=== PATIENT | female | born 1985 | race Caucasian/White ===

== ENCOUNTER 2016-12-25 14:27 | Observation (INO) ==
[2016-12-25] MEDS ORDERED: PROMETHAZINE 25 MG/1 ML VIAL ONE (14:40)
[2016-12-25] MEDS ORDERED: PROMETHAZINE 25 MG/1 ML VIAL IM PRN (14:49)
[2016-12-25] MEDS ORDERED: ACETAMINOPHEN 325 MG TABLET PO PRN (14:49)
[2016-12-25 15:12] LABS: Basophils % 0.5 % (0.0-0.8); Eosinophils # 0.1 10*3/uL (0.0-0.87); Eosinophils % 0.9 % (0.00-10.9); Hematocrit 36.9 VOL% (35.7-47.0); Hemoglobin 13.2 GM/DL (12.0-16.0); Immature Granulocytes % 0.4 %; Immature Granulocytes Absolute 0.03 #; Lymphocytes # 1.8 10*3/uL (1.4-4.0); Lymphocytes % 24.2 % (21.3-54.2); Mean Corpuscular HGB Conc 35.8 GM/DL (32-36); Mean Corpuscular Hemoglobin 31 PG (27-34); Mean Corpuscular Volume 85.8 FL (87-102); Mean Platelet Volume 11.9 FL (9.6-12.0); Monocytes # 0.6 10*3/uL (0.11-0.8); Monocytes % 8.2 % (1.7-12.7); Neutrophils # 4.9 10*3/uL (1.4-7.4); Neutrophils % 65.8 % (38.7-73.9); Platelet Count 221 T/CUMM (130-400); Red Cell Distribution Width 13.2 % (9.3-17.3); White Blood Count 7.4 T/CUMM (4-12)
[2016-12-25] MEDS ORDERED: METOCLOPRAMIDE 10 MG/2 ML VIAL IV PRN (15:22)
[2016-12-25 15:41] LABS: Albumin 4.3 G/DL (3.4-5.0); Bilirubin,Total 1.1 MG/DL (0.2-1.0); Potassium 3.6 MMOL/L (3.5-5.1); Total Protein 7.6 G/DL (6.4-8.3)
[2016-12-25] MEDS: ONDANSETRON 4 MG/2 ML VIAL IV SCH ×2 (15:44→21:41)
[2016-12-25] MEDS: LACTATED RINGERS 1,000 ML IV SCH ×2 (15:44→21:39)
[2016-12-25 16:30] LABS: Barbiturates Screen,Urine Negative (Negative); Benzodiazepines Screen,Urine Negative (Negative); Cannabinoid Screen,Urine Positive (Negative); Opiate Screen,Urine Negative (Negative); Phencyclidine Screen,Urine Negative (Negative)
[2016-12-25] MEDS: PANTOPRAZOLE 40 MG VIAL IV SCH (21:35)
[2016-12-26] MEDS: LACTATED RINGERS 1,000 ML IV SCH ×3 (04:19→22:10)
[2016-12-26] MEDS: ONDANSETRON 4 MG/2 ML VIAL IV SCH ×2 (04:20→12:10)
[2016-12-26] MEDS: PANTOPRAZOLE 40 MG VIAL IV SCH ×2 (09:11→20:39)
[2016-12-26] MEDS ORDERED: ONDANSETRON 4 MG/2 ML VIAL ONE (12:08)
[2016-12-26] MEDS: METOCLOPRAMIDE 10 MG/2 ML VIAL IV SCH (15:58)
[2016-12-26] MEDS ORDERED: ONDANSETRON 4 MG/2 ML VIAL IV PRN (16:00)
--- NOTE | 2016-12-26 18:08 | OB/GYN History & Physical ---
History of Present Illness Chief complaint: Hyperemesis gravidarum History of present illness: Ms. Barnes is a 31 year old female 31-year-old female with a history of hyperemesis for the last 2 weeks. Her symptoms have gotten progressively worse. She was admitted through the emergency room after receiving IV fluids and Zofran without good results. In light of these findings on ultrasound was obtained and subsequently this patient received IV fluids Zofran and Phenergan and was admitted for further evaluation. No vaginal bleeding, no abdominal pain, just significant amount of retching. Home Medications Medication Instructions Recorded Confirmed Type Ondansetron Tab [Zofran Tab] 4 mg PO Q6H #7 tablet 12/24/16 12/25/16 Rx Allergies Allergy/AdvReac Type Severity Reaction Status Date / Time azithromycin [From Zithromax] Allergy RASH Verified 12/24/16 08:44 cefdinir [From Omnicef] Allergy HIVES Verified 12/24/16 08:44 latex Allergy RASH Verified 12/24/16 08:44 morphine Allergy RASH Verified 12/24/16 08:44 Medical,Surgical,& Family Hx - Medical History Psychological: History of: Anxiety Disorders HEENT: History of: Dental Problems (partial plate) Rheumatology: History of;: Rheumatoid Arthritis (fingers) Gastrointestinal: History of: Hemorrhoids, Polyps - Family History Family History: Reports;: Family Diabetes (dad), Family Heart Disease (both sets of grandparents), Family Psychiatric Problems (dad) Comment Only: Family Hypertension (dad) - Social History Smoking Status: Never smoker Frequency of Alcohol Use: None 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 - Constitutional Vitals: Vital Signs Temp Pulse Resp BP Pulse Ox 12/26/16 12:00 97.6 F 80 20 118/70 99 12/26/16 07:36 98.5 F 71 18 111/74 99 12/26/16 06:47 18 12/26/16 05:57 18 12/26/16 05:00 18 12/26/16 04:00 97.6 F 76 18 110/66 97 12/26/16 03:00 18 12/26/16 02:00 18 12/26/16 01:00 18 12/26/16 00:00 98.6 F 74 18 117/60 97 12/25/16 23:00 18 12/25/16 21:47 18 12/25/16 21:00 18 12/25/16 20:00 99.0 F 67 18 116/68 97 General appearance: mild distress - Antepartum / Post Antepartum Exam Cervix - Dilatation: Thick Heart Rate: Positive - Head Head exam: Present: normal inspection - Eye Eye exam: Present: EOMI Pupils: Present: HENRIQUE - ENT ENT exam: Present: normal exam - Neck Neck exam: Present: normal inspection - Respiratory Respiratory exam: Present: clear to auscultation bilaterally - Breast Breasts: as per HPI Menstruation: as per HPI - Cardiovascular Cardiovascular exam: Present: regular rate and rhythm - GI/Abdominal GI/Abdominal exam: Present: normal bowel sounds - Extremities Exam Extremities exam: Present: normal inspection - Back Exam Back exam: Present: normal inspection - Neurological Exam Neurological exam: Present: alert, oriented X3 - Psychiatric Psychiatric exam: Present: normal affect - Skin Skin exam: Present: normal color Assessment and Plan (1) Hyperemesis Status: Acute Assessment and plan: IV fluids, Zofran, Phenergan, repeat pelvic ultrasound. Current Visit: Yes (2) Drug usage Status: Acute Assessment and plan: Positive use of marijuana, will continue to observe, and monitor the development of the embryo. Current Visit: Yes Results - Labs CBC & BMP: 12/25/16 15:04 12/25/16 15:04
[2016-12-27] MEDS: LACTATED RINGERS 1,000 ML IV SCH (06:16)
[2016-12-27 07:16] VITALS: BP 109/67
[2016-12-27] MEDS: METOCLOPRAMIDE 10 MG/2 ML VIAL IV SCH ×2 (07:56)
[2016-12-27] MEDS: PANTOPRAZOLE 40 MG VIAL IV SCH (08:32)
--- NOTE | 2016-12-27 10:55 | Discharge Summary ---
Hospital Course - Hospital Course Hospital Course: 31-year-old 2 para 1 approximately 7 weeks gestation. Admitted with hyperemesis gravidarum. Patient on 26 December was able to maintain clear liquids. On the evening of the she tolerated a soft diet on the morning of the she started tolerating a soft diet as well. In light of the finding that the subsequent dehydration, and excessive nausea and vomiting has subsided. This patient will be discharged today and continue with Zofran as needed and follow what our office at her next scheduled visit. Cardiac activity was documented with an ultrasound. Diagnosis - Discharge Diagnosis (1) Hyperemesis Status: Acute (2) Drug usage Status: Acute Specialty Discharge - Follow Up or Referrals Discharge Plan - Discharge Data Condition at Discharge: Stable Discharge Diet: advance to your usual diet, other (A bland diet) Activity: increase activity as tolerated Hygiene: no restrictions Weight Bearing at Discharge: full weight bearing Driving: no restrictions Contact your physician if you experience:: fever over 101, Bleeding - Discharge Medications New Metoclopramide Inj [Reglan Inj] 10 mg PO Q8H PRN #30 tablet PRN Reason: Indigestion Continue Ondansetron Tab [Zofran Tab] 4 mg PO Q6H #30 tablet - Follow Up or Referral - Forms/Instructions Instructions: Hyperemesis Gravidarum (DC) Exam - Constitutional Vitals: Period Temp Pulse Resp BP Sys/Aguirre Pulse Ox Last 24 Hr 97.3 F-98 F 72-86 17-20 101-118/56-70 98-100 DS: Provider Date of admission: 12/25/16 14:27 Primary care physician: . No PCP Attending physician on admission: Wendy Harper MD Consults: 12/25/16 16:45 Consult to Case Mgmt/Social Srvs [CONS] Routine Reason for Case Mgmt/Social Srvs: Other Consult Comment: positive for illegal substance while Discharging clinician: Wendy Harper MD
== END 2016-12-27 15:00 | disposition home or self-care (01) ==
LOC: N.OB 14:27 → INTOOBSV 14:27
PROVIDERS: ADMIT Obstetrics & Gynecology; ATTEND Obstetrics & Gynecology

== ENCOUNTER 2019-01-29 05:42 | Inpatient (IN) ==
[2019-01-29] MEDS ORDERED: OXYTOCIN/LR 20 UNIT/1,000 ML BAG IV ONE ×2 (05:44→12:51)
[2019-01-29] MEDS ORDERED: ACETAMINOPHEN 325 MG TABLET PO PRN ×2 (05:51→12:51)
[2019-01-29] MEDS ORDERED: ONDANSETRON 4 MG/2 ML VIAL IV PRN ×2 (05:51→12:51)
[2019-01-29] MEDS ORDERED: MEPERIDINE 50 MG/1 ML VIAL IV PRN (05:51)
[2019-01-29] MEDS ORDERED: OXYTOCIN/LR 20 UNIT/1,000 ML BAG IV SCH (06:00)
[2019-01-29] MEDS ORDERED: LACTATED RINGERS 1,000 ML IV SCH ×2 (06:00→07:00)
[2019-01-29 06:26] LABS: Basophils % 0.4 % (0.0-0.8); Bilirubin,Total 0.5 MG/DL (0.2-1.0); Calcium 8.9 MG/DL (8.5-10.1); Eosinophils # 0.1 10*3/uL (0.0-0.87); Eosinophils % 0.8 % (0.00-10.9); Hematocrit 29.7 VOL% (35.7-47.0); Immature Granulocytes % 2.6 %; Immature Granulocytes Absolute 0.27 #; Lymphocytes # 1.9 10*3/uL (1.4-4.0); Lymphocytes % 17.8 % (21.3-54.2); Mean Corpuscular HGB Conc 30.3 GM/DL (32-36); Mean Corpuscular Volume 84.1 FL (87-102); Mean Platelet Volume 12.8 FL (9.6-12.0); Monocytes % 8.3 % (1.7-12.7); NRBC # 0.02 10*3/uL; Neutrophils % 70.1 % (38.7-73.9); Osmolality,Calculated 273.7 MOS/KG (273-304); Platelet Count 178 T/CUMM (130-400); Red Blood Count 3.53 MC/CUMM (3.8-5.5); Red Cell Distribution Width 15.9 % (9.3-17.3); Total Protein 7.1 G/DL (6.4-8.3); White Blood Count 10.5 T/CUMM (4-12)
[2019-01-29] MEDS ORDERED: ePHEDrine 50 MG/ML AMP IV PRN (06:49)
[2019-01-29] MEDS ORDERED: NALOXONE 0.4 MG/ML VIAL IV PRN (06:49)
[2019-01-29] MEDS ORDERED: diphenhydrAMINE 50 MG/1 ML VIAL IV PRN (06:49)
[2019-01-29] MEDS ORDERED: hydrOXYzine HCL 25 MG/1 ML VIAL IM PRN (06:49)
[2019-01-29] MEDS ORDERED: CITRIC ACID/SODIUM CITRATE 30 ML UDCUP PO ONE (06:50)
[2019-01-29] MEDS ORDERED: FAMOTIDINE 20 MG/2 ML VIAL IV ONE (06:53)
[2019-01-29] MEDS ORDERED: fentaNYL 2 MCG/ROPIV 0.2% EPID 100 ML EPIDURAL SCH (07:00)
[2019-01-29 09:48] LABS: Apearance,Urine CLEAR (Clear); Bilirubin,Urine Negative (Negative); Blood, Urine Negative (Negative); Glucose,Urine (UA) Negative (Negative); Ketones,Urine Negative (Negative); Mucus,Urine Occasional /LPF (Occasional); Nitrite,Urine Negative (Negative); Protein,Urine Negative; RBC,Urine 3 /HPF (0-4); Urine Color Yellow (Yellow); Urine Specific Gravity 1.019 (1.001-1.035); Urine Urobilinogen < 2.0 EU/DL (0.2-1.0); WBC,Urine 1 /HPF (0-6)
[2019-01-29] MEDS ORDERED: fentaNYL 100 MCG/2 ML VIAL ONE (11:54)
[2019-01-29] MEDS ORDERED: miSOPROStoL 200 MCG TABLET ONE (12:36)
[2019-01-29] MEDS ORDERED: LANOLIN 50% CREAM 0.3 OZ TUBE TOP PRN (12:51)
[2019-01-29] MEDS ORDERED: HYDROCORTISONE 2.5% RECTAL CREAM 30 GM TUBE TOP PRN (12:51)
[2019-01-29] MEDS ORDERED: RHO(D) IMMUNE GLOBULIN 300 MCG SYRINGE IM ONE (12:51)
[2019-01-29] MEDS ORDERED: MEASLES/MUMPS/RUBELLA VACCINE 0.5 ML VIAL SUBCUT ONE (12:51)
[2019-01-29] MEDS ORDERED: WITCH HAZEL PADS 100/JAR TOP PRN (12:51)
[2019-01-29] MEDS ORDERED: BISACODYL 10 MG SUPP RECTAL PRN (12:51)
[2019-01-29] MEDS ORDERED: DIPH/TET/ACEL PERT BOOSTER VACCINE 0.5 ML VIAL IM ONE (12:51)
[2019-01-29] MEDS ORDERED: oxyCODONE/ACETAMINOPHEN 5-325 MG TABLET PO PRN (12:51)
[2019-01-29] MEDS: IBUPROFEN 800 MG TABLET PO PRN (14:36)
[2019-01-29] MEDS: DOCUSATE SODIUM 100 MG CAPSULE PO SCH (20:06)
[2019-01-29] MEDS: oxyCODONE/ACETAMINOPHEN 5-325 MG TABLET PO PRN (20:06)
[2019-01-30] MEDS: IBUPROFEN 800 MG TABLET PO PRN ×4 (00:01→18:18)
[2019-01-30] MEDS: BENZOCAINE 20%/MENTHOL 0.5% SPRAY 56 GM CAN TOP PRN ×2 (00:01→15:26)
[2019-01-30] MEDS: ALUMINUM/MAGNES/SIMETH MAX STR 30 ML UDCUP PO PRN ×2 (03:29→20:32)
[2019-01-30 05:59] LABS: Basophils % 0.3 % (0.0-0.8); Eosinophils # 0.1 10*3/uL (0.0-0.87); Eosinophils % 1.2 % (0.00-10.9); Hematocrit 23.6 VOL% (35.7-47.0); Hemoglobin 7.1 GM/DL (12.0-16.0); Lymphocytes # 1.3 10*3/uL (1.4-4.0); Lymphocytes % 13.2 % (21.3-54.2); Mean Corpuscular HGB Conc 30.1 GM/DL (32-36); Mean Corpuscular Volume 84.9 FL (87-102); Mean Platelet Volume 12.8 FL (9.6-12.0); Monocytes % 8.4 % (1.7-12.7); Neutrophils % 74.9 % (38.7-73.9); Platelet Count 131 T/CUMM (130-400); Red Blood Count 2.78 MC/CUMM (3.8-5.5); Red Cell Distribution Width 15.9 % (9.3-17.3); White Blood Count 9.8 T/CUMM (4-12)
[2019-01-30] MEDS: ENOXAPARIN 40 MG/0.4 ML SYRINGE SUBCUT SCH (06:13)
[2019-01-30] MEDS: oxyCODONE/ACETAMINOPHEN 5-325 MG TABLET PO PRN ×2 (06:13→18:19)
[2019-01-30] MEDS: DOCUSATE SODIUM 100 MG CAPSULE PO SCH ×2 (09:51→20:32)
[2019-01-30] MEDS: FERROUS SULFATE 325 MG TABLET PO SCH ×2 (09:52→23:11)
[2019-01-30] MEDS ORDERED: RHO(D) IMMUNE GLOBULIN 300 MCG SYRINGE IM ONE (14:27)
[2019-01-31] MEDS ORDERED: ALUMINUM/MAGNES/SIMETH MAX STR 30 ML UDCUP PO PRN (00:30)
[2019-01-31] MEDS: oxyCODONE/ACETAMINOPHEN 5-325 MG TABLET PO PRN ×2 (00:33→06:31)
[2019-01-31] MEDS: IBUPROFEN 800 MG TABLET PO PRN ×2 (00:34→06:30)
[2019-01-31] MEDS: ENOXAPARIN 40 MG/0.4 ML SYRINGE SUBCUT SCH ×2 (06:31→06:59)
[2019-01-31 07:21] VITALS: BP 127/71
[2019-01-31] MEDS: FERROUS SULFATE 325 MG TABLET PO SCH (08:57)
[2019-01-31] MEDS: DOCUSATE SODIUM 100 MG CAPSULE PO SCH (08:57)
[2019-01-31] MEDS ORDERED: PANTOPRAZOLE 20 MG TABLET PO SCH (09:00)
== END 2019-01-31 10:15 | disposition home or self-care (01) | DRG 560 ==
LOC: N.LDOUT 05:42 → N.LD 05:43 → N.OB 17:11
PROVIDERS: ADMIT Specialist; ATTEND Specialist